=== PATIENT | female | born 1990 ===

== ENCOUNTER 2018-04-30 10:03 | Emergency (ER) | payer MEDICAID, OTHER ==
[2018-04-30 10:03] VITALS: BMI 30.4
[2018-04-30 10:08] VITALS: TEMP 98
[2018-04-30 10:11] VITALS: O2SAT 98
[2018-04-30] MEDS ORDERED: Iohexol 240 (50 ml) PO ONE (11:04)
[2018-04-30] MEDS ORDERED: Sodium Chloride 0.9% 1,000 ML IV STA (11:05)
--- NOTE | 2018-04-30 11:08 | ED PDOC ---
HPI: Abdomen Time Seen by Provider: 04/30/18 10:50 Chief Complaint (Nursing): Abdominal Pain Chief Complaint (Provider): abd pain History Per: Patient (27 y/o female h/o renal stent 3 years prior here with 3 days of abdominal pain noted mostly left sided associated with vomiting and decreased BM x 2 days. Denies any fevers/chills. Denies any association with urinary discomfort. Notes "swelling in abdomen" at night with increasing pain and associated with swelling in lower legs.) Past Medical History Reviewed: Historical Data, Nursing Documentation, Vital Signs Vital Signs: Last Vital Signs Temp 98.0 F 04/30/18 10:07 Pulse 78 04/30/18 10:07 Resp 20 04/30/18 10:07 BP 130/84 04/30/18 10:07 Pulse Ox 98 04/30/18 15:33 - Medical History PMH: Kidney Stones, Rheumatoid Arthritis - Family History Family History: States: Unknown Family Hx - Immunization History Hx Tetanus Toxoid Vaccination: No Hx Influenza Vaccination: No Hx Pneumococcal Vaccination: No - Home Medications Home Medications: Ambulatory Orders Medication Instructions Recorded Famotidine/Ca Carb/Mag Hydrox 1 each PO BID #20 tab.chew 04/29/18 [Pepcid Complete Tablet Chew] Dicyclomine [Bentyl] 1 tab PO Q6 PRN #20 tab 04/30/18 Ranitidine HCl [Zantac 75] 75 mg PO BID #10 tablet 04/30/18 - Allergies Allergies/Adverse Reactions: Allergies Allergy/AdvReac Type Severity Reaction Status Date / Time No Known Allergies Allergy Verified 04/30/18 10:09 Review of Systems ROS Statement: Except As Marked, All Systems Reviewed And Found Negative Gastrointestinal: Positive for: Abdominal Pain Physical Exam - Reviewed Nursing Documentation Reviewed: Yes Vital Signs Reviewed: Yes - Physical Exam Appears: Positive for: Well, Non-toxic, No Acute Distress Head Exam: Positive for: ATRAUMATIC, NORMAL INSPECTION, NORMOCEPHALIC Skin: Positive for: Normal Color, Warm, DRY Eye Exam: Positive for: EOMI, Normal appearance, PERRL ENT: Positive for: Normal ENT Inspection Neck: Positive for: Normal, Painless ROM Cardiovascular/Chest: Positive for: Regular Rate, Rhythm Respiratory: Positive for: CNT, Normal Breath Sounds Gastrointestinal/Abdominal: Positive for: Normal Exam, Soft, Tenderness (left upper and lower quadrant tenderness) Back: Positive for: Normal Inspection Extremity: Positive for: Normal ROM Neurologic/Psych: Positive for: Alert, Oriented - Laboratory Results Result Diagrams: 04/30/18 11:45 04/30/18 11:45 Urine POC: Negative Urine dip results: Positive for: Blood. Negative for: Leukocyte Esterase, Nitrate, Ketones, Glucose, Bilirubin, Protein - ECG O2 Sat by Pulse Oximetry: 98 - Progress ED Course And Treament: pepcid 20 mg iv x 1 dose toradol 15 mg iv x 1 dose ns 1 liter 500 ml per hour Will prep patient for ct abd/pelvis. Disposition - Clinical Impression Clinical Impression: Abdominal pain in female - Patient ED Disposition Is Patient to be Admitted: No - Disposition Referrals: Agapito Rogers MD [Staff Provider] - Disposition: Routine/Home Disposition Time: 15:34 Condition: FAIR Prescriptions: Dicyclomine [Bentyl] 1 tab PO Q6 PRN #20 tab PRN Reason: Pain, Moderate (4-7) Ranitidine HCl [Zantac 75] 75 mg PO BID #10 tablet Instructions: Acute Abdomen (Belly Pain), Adult (DC) Forms: [employer] (H[place]ian), [facility] ED School/Work Excuse
[2018-04-30] MEDS ORDERED: Famotidine 20mg/50ml 20 MG/50 ML BAG IVPB STA (11:09)
[2018-04-30] MEDS ORDERED: Iohexol 240 (50 ml) ONE (11:24)
[2018-04-30] MEDS ORDERED: Famotidine 20mg/50ml 20 MG/50 ML BAG IVPB ONE (11:25)
[2018-04-30 11:56] LABS: BASO % 0.9 % (0.0-2.0); EOS # 0.1 K/uL (0.0-0.7); EOS % 2.7 % (0.0-4.0); HEMOGLOBIN 13.4 g/dL (12.0-16.0); LYMPH # 1.4 K/uL (1.0-4.3); LYMPH % 25.5 % (20.0-40.0); MEAN CELL VOLUME 89.2 fl (81.0-99.0); MEAN CORPUSCULAR HEMOGLOBIN 30.2 pg (27.0-31.0); MEAN CORPUSCULAR HGB CONC 33.8 g/dL (33.0-37.0); MONO # 0.3 K/uL (0.0-0.8); MONO % 5.8 % (0.0-10.0); NEUT # 3.5 K/uL (1.8-7.0); NEUT % 65.1 % (50.0-75.0); NRBC % 0.1 % (0.0-0.0); RBC 4.43 Mil/uL (3.80-5.20); RED CELL DISTRIBUTION WIDTH 12.9 % (11.5-14.5); WHITE BLOOD COUNT 5.3 K/uL (4.8-10.8)
[2018-04-30 11:58] LABS: SQUAMOUS EPITHIAL 1 /hpf (0-5); URINE BACTERIA RARE (<OCC); URINE BILIRUBIN NEGATIVE (NEGATIVE); URINE BLOOD LARGE (NEGATIVE); URINE CLARITY CLOUDY (Clear); URINE COLOR YELLOW (YELLOW); URINE GLUCOSE (UA) NEG (Normal); URINE LEUKOCYTE ESTERASE NEG Leu/uL (Negative); URINE PROTEIN 30 mg/dL (NEGATIVE); URINE UROBILINOGEN 0.2-1.0 mg/dL (0.2-1.0)
[2018-04-30 12:04] LABS: ALB/GLOB RATIO 1.3 (1.0-2.1); ALT/SGPT 27 U/L (9-52); AST/SGOT 19 U/L (14-36); BLOOD UREA NITROGEN 11 mg/dl (7-17); CALCIUM 9.2 mg/dL (8.4-10.2); GFR AFRICAN-AMERICAN > 60; GFR NON-AFRICAN AMERICAN > 60; LIPASE 31 U/L (23-300)
[2018-04-30] MEDS ORDERED: Iohexol 300 100 ML IJ ONE (13:50)
[2018-04-30] MEDS ORDERED: Sodium Chloride 0.9% 100 ML ONE (13:51)
--- NOTE | 2018-04-30 15:31 | CT ---
PROCEDURE: CT Abdomen and Pelvis with contrast HISTORY: Left-sided abdominal pain. Negative test (concurrent with this examination). COMPARISON: None. TECHNIQUE: Contrast dose: Radiation dose: Total exam DLP = mGy-cm. This CT exam was performed using one or more of the following dose reduction techniques: Automated exposure control, adjustment of the mA and/or kV according to patient size, and/or use of iterative reconstruction technique. FINDINGS: LOWER THORAX: Unremarkable. LIVER: Unremarkable. No gross lesion or ductal dilatation. GALLBLADDER AND BILE DUCTS: Unremarkable. PANCREAS: Unremarkable. No gross lesion or ductal dilatation. SPLEEN: Unremarkable. ADRENALS: Unremarkable. No mass. KIDNEYS AND URETERS: Unremarkable. No hydronephrosis. No solid mass. VASCULATURE: Unremarkable. No aortic aneurysm. BOWEL: Unremarkable. No obstruction. No gross mural thickening. APPENDIX: Normal appendix. PERITONEUM: Unremarkable. No free fluid. No free air. LYMPH NODES: Unremarkable. No enlarged lymph nodes. BLADDER: Unremarkable. REPRODUCTIVE: Unremarkable. BONES: No acute fracture. OTHER FINDINGS: None. IMPRESSION: Unremarkable contrast enhanced CT of the abdomen and pelvis.
[2018-04-30 16:24] VITALS: BP 124/80; PULSE 72; RESP 18
== END 2018-04-30 16:17 | disposition home or self-care (01) ==
LOC: H.ER 10:03
DX: R10.9 Unspecified abdominal pain (principal); R11.10 Vomiting, unspecified; M06.9 Rheumatoid arthritis, unspecified
CPT/HCPCS: 74177; 80053; 81003; 81025; 83690; 85025; 87086; 96374; 99284; J1885; J7030; Q9966; Q9967